=== PATIENT | female | born 1980 | race Caucasian/White ===

== ENCOUNTER 2016-10-21 07:17 | Observation (INO) | payer OTHER ==
[2016-10-21] MEDS ORDERED: ceFAZolin 2 GM/DEXTROSE 100 ML IV ONE (07:55)
[2016-10-21] MEDS ORDERED: THROMBIN (BOVINE) 5,000 UNIT VIAL TP ONE (08:25)
[2016-10-21] MEDS ORDERED: CHLORHEXIDINE GLUC HIBICLENS 118 ML BTL TP ONE (08:25)
[2016-10-21] MEDS ORDERED: BUPIVACAINE 0.25% 30 ML SDV ONE (08:26)
[2016-10-21] MEDS ORDERED: BACITRACIN 50,000 UNITS/10 ML SYR IRR ONE (08:26)
[2016-10-21] MEDS ORDERED: LR 1,000 ML IV ONE (08:28)
[2016-10-21] MEDS ORDERED: LIDOCAINE 1% 2 ML INJ ONE (08:43)
[2016-10-21] MEDS ORDERED: MIDAZOLAM 2 MG/2 ML VIAL IVP ONE (08:53)
[2016-10-21] MEDS ORDERED: PREGABALIN 150 MG CAP PO ONE (08:54)
--- NOTE | 2016-10-21 09:18 | PDANEPAE ---
ANE History of Present Illness c5-6 ACDF ANE Past Medical History - Cardiovascular History Hx Hypertension: No Hx Arrhythmias: No Hx Chest Pain: No Hx Coronary Artery / Peripheral Vascular Disease: No Hx CHF / Valvular Disease: No Hx Palpitations: No - Pulmonary History Hx COPD: No Hx Asthma/Reactive Airway Disease: No Hx Recent Upper Respiratory Infection: No Hx Oxygen in Use at Home: No Hx Sleep Apnea: No Sleep Apnea Screening Result - Last Documented: Negative - Neurologic History Hx Cerebrovascular Accident: No Hx Seizures: No Hx Dementia: No - Endocrine History Hx Diabetes: No - Renal History Hx Renal Disorders: No - Liver History Hx Hepatic Disorders: No - Neurological & Psychiatric Hx Hx Neurological and Psychiatric Disorders: Yes Neurological / Psychiatric History Comment: severe neck pain w/ stabbing, burning pain down R UE- miriam R upper arm. Occ numbness. R arm weakness. - Cancer History Hx Cancer: No - Congenital Disorder History Hx Congenital Disorders: No - GI History Hx Gastrointestinal Disorders: No - Other Health History Other Health History: CRPS or chronic regional pain syndrome -L ankle - Chronic Pain History Chronic Pain: Yes (neck/RUE, LLE RSD) - Surgical History Prior Surgeries: T and A mid 80's. appy '04. L ankle sx '08,'09'. nose reconstruction '07 ANE Review of Systems Review of systems is: negative - Exercise capacity Exercise capacity: >=4 METS METS (RN): 5 METS ANE Patient History - Allergies Allergies/Adverse Reactions: adhesive tape Allergy (Verified 10/10/16 12:06) Other-Enter Comments - Home Medications Home Medications: Ascorbic Acid [Vitamin C 500 mg (*)] 500 mg PO DAILY 10/09/16 [Last Taken 1 Week Ago] Cholecalciferol Vit D3 [Vitamin D3 (*)] 2,000 units PO DAILY 10/09/16 [Last Taken 1 Week Ago] Gabapentin [Neurontin 100 MG (*)] 200 mg PO TID 10/09/16 [Last Taken 10/20/16 20 :00] Herbals/Supplements -Info Only 1 ea PO DAILY 10/09/16 [Last Taken 1 Week Ago] Ibuprofen [Motrin (*)] 200 mg PO DAILY PRN 10/09/16 [Last Taken 1 Week Ago] Vitamin B Complex [B Complex] 1 each PO DAILY 10/09/16 [Last Taken 1 Week Ago] oxyCODONE/APAP 5/325 [Percocet 5/325 (*)] 1 each PO Q4-6PRN PRN 10/09/16 [Last Taken 10/20/16 20:00] - NPO status NPO Status: no food or drink >8 hours NPO Since - Liquids (Date): 10/20/16 NPO Since - Liquids (Time): 08:00 NPO Since - Solids (Date): 10/20/16 NPO Since - Solids (Time): 18:00 - Anes Hx Anes Hx: post operative nausea - Smoking Hx Smoking Status: Never smoked Marijuana use: No - Alcohol Use Alcohol Use: None ANE Labs/Vital Signs - Vital Signs Blood Pressure: 124/91 Heart Rate: 72 Respiratory Rate: 16 O2 Sat (%): 96 Height: 170.18 cm Weight: 90.718 kg ANE Physical Exam - Airway Neck exam: decreased ROM Mallampati Score: Class 1 - Pulmonary Pulmonary: no respiratory distress - Cardiovascular Cardiovascular: regular rate and rhythym - ASA Status ASA Status: II ANE Anesthesia Plan Anesthesia Plan: general endotracheal anesthesia Specialized Airway: video laryngoscope Total IV Anesthesia: Yes
[2016-10-21] MEDS ORDERED: SCOPOLAMINE HYDROBROMIDE 1 MG/3 DAYS PATCH TD ONE (09:23)
[2016-10-21] MEDS ORDERED: SCOPOLAMINE HYDROBROMIDE 1 MG/3 DAYS PATCH TD SCH (09:30)
[2016-10-21] MEDS ORDERED: ONDANSETRON 4 MG/2 ML VIAL ONE (09:35)
[2016-10-21] MEDS ORDERED: SUGAMMADEX SODIUM 200 MG/2 ML VIAL IVP ONE (09:35)
[2016-10-21] MEDS ORDERED: REMIFENTANIL HCL 1 MG VIAL ONE ×2 (09:35→10:34)
[2016-10-21] MEDS ORDERED: DEXAMETHASONE 4 MG/ML VIAL ONE (09:35)
[2016-10-21] MEDS ORDERED: LIDOCAINE 2% 100 MG/5 ML SYR ONE (09:35)
[2016-10-21] MEDS ORDERED: fentaNYL 100 MCG/2 ML INJ ONE ×3 (09:36→12:32)
[2016-10-21] MEDS ORDERED: PROPOFOL 200 MG/20 ML VIAL ONE (09:36)
[2016-10-21] MEDS ORDERED: PROPOFOL/EMULSION 500 MG/50 ML BOTTLE IV ONE ×2 (09:36→10:34)
[2016-10-21] MEDS ORDERED: ONDANSETRON 4 MG/2 ML VIAL IVP PRN ×2 (10:31→11:27)
[2016-10-21] MEDS ORDERED: ACETAMINOPHEN 500 MG TAB PO PRN (10:31)
[2016-10-21] MEDS ORDERED: PROMETHAZINE HCL 25 MG/ML INJ IVP PRN (10:31)
[2016-10-21] MEDS ORDERED: OXYCODONE/APAP 5/325 TAB PO PRN (10:31)
[2016-10-21] MEDS ORDERED: HYDROCODONE/APAP 5/325 TAB PO PRN (10:31)
[2016-10-21] MEDS ORDERED: NALOXONE HCL 0.4 MG/ML INJ IVP PRN (10:31)
[2016-10-21] MEDS ORDERED: MEPERIDINE 25 MG/ML SYR IVP PRN (10:31)
[2016-10-21] MEDS ORDERED: ALBUTEROL 3 ML DEYVIAL IH PRN (10:31)
[2016-10-21] MEDS ORDERED: DIAZEPAM 10 MG/2 ML SYR IVP PRN ×2 (11:02→11:47)
[2016-10-21] MEDS ORDERED: diphenhydrAMINE 25 MG CAP PO PRN (11:27)
[2016-10-21] MEDS ORDERED: ONDANSETRON DISINTEGRATING 4 MG TAB PO PRN (11:27)
[2016-10-21] MEDS ORDERED: BISACODYL 10 MG SUPP PR PRN (11:27)
[2016-10-21] MEDS ORDERED: POLYETHYLENE GLYCOL 3350 17 GM PKT PO PRN (11:27)
[2016-10-21] MEDS ORDERED: LACTULOSE 20 GM/30 ML UDCUP PO PRN (11:27)
[2016-10-21] MEDS ORDERED: MAGNESIUM HYDROXIDE 30 ML UDCUP PO PRN (11:27)
[2016-10-21] MEDS ORDERED: HYDROmorphONE/DILAUDID 1 MG/ML SYR ONE ×2 (11:29→12:10)
[2016-10-21] MEDS: HYDROmorphONE/DILAUDID 1 MG/ML SYR IVP PRN ×4 (11:29→12:43)
[2016-10-21] MEDS ORDERED: NS 1,000 ML IV SCH (11:30)
--- NOTE | 2016-10-21 11:35 | PDHPUP ---
History & Physical Update H&P update statement: This history and physical update is based on an assessment of the patient which was completed after admission or registration (within 24 hours), but prior to the surgery/procedure. H&P update: H&P reviewed & patient examined, no change in patient's condition since H&P completed
[2016-10-21] MEDS ORDERED: DIAZEPAM 10 MG/2 ML SYR ONE (11:37)
--- NOTE | 2016-10-21 11:47 | POSTOPPROG ---
Post Op Note Date of Operation: 10/21/16 Surgeon: Chris Nixon Sales Training Representative: Priscilla Forman PA-C Anesthesia: GET(General Endotracheal) Pre-op Diagnosis: Cervical radiculopathy Post-op Diagnosis: Same Procedure: ACDF C5/6 Findings: See operative dication Inf/Abcess present in the surg proc area at time of surgery?: No Depth: Organ Space EBL: Minimal (10mL) Complications: None SOAP Progress Note Assessment/Plan: Assessment: Plan: S: Patient doing well, in PACU. Has expected muscle spasm pain in posterior neck. O: NAD, VSS CN II-XII grossly intact PERRL, EOMI, speech fluent BUE 5/5= CAMACHO X 4 Incision c/d/i- dermabond A: 36 yo female sp ACDF C5/6 for right arm radiculopathy and large disc herniation P: -Admit to med/surg -Optmize pain management- percocet/valium/tylenol -Postop x-rays later today -No collar- only soft collar for comfort -PT/ADMINISTRATIVE SECRETARY -Dispo- can go home later today if doing well, swallowing well -Advance diet as tolerated- soft -Call neurosurgery with any changes in neuro/motor exam 10/21/16 11:36 Objective: Vital Signs Temp Pulse Resp BP Pulse Ox 72 16 124/91 H 96 10/21/16 09:18 10/21/16 09:18 10/21/16 09:18 10/21/16 09:18
--- NOTE | 2016-10-21 12:07 | GOP ---
[f rep st] OPERATIVE REPORT DATE OF OPERATION: 10/21/2016 SURGEON: Chris Nixon MD NEUROSURGEON: Chris Nixon M.D. LPN: Priscilla Forman P.A.-C. ANESTHESIA: General endotracheal. PREOPERATIVE DIAGNOSIS: 1. Right C6 radiculopathy. 2. Large disk osteophyte complex on the right at C5-C6. POSTOPERATIVE DIAGNOSIS: 1. Right C6 radiculopathy. 2. Large disk osteophyte complex on the right at C5-C6. PROCEDURE PERFORMED: 1. C5-C6 anterior cervical diskectomy and fusion. 2. Placement of interbody device at C5-C6. 3. Anterior instrumentation at C5-C6. 4. Use of the operative microscope. 5. Intraoperative neurophysiologic monitoring, including somatosensory evoked potentials and motor evoked potentials. 6. [place] of local autograft. 7. Use of allograft Pro[employer] demineralized bone matrix. FINDINGS: Successful ACDF. SPECIMENS: There were no specimens. ESTIMATED BLOOD LOSS: 25 mL. INDICATIONS: The patient is a 36-year-old woman who presented with a right C6 radiculopathy. She h as failed conservative measures, including physical therapy, steroid injections and oral steroids, a lthough she did get brief benefit from these for the short term. She presents today for C5-C6 anter ior cervical diskectomy and fusion, after exhaustive discussion regarding surgical versus continued conservative management. DESCRIPTION OF PROCEDURE: After informed consent was obtained from the patient, the patient was bro ught to the operating room and was placed in the supine position on the operating table. A formal t shanel-out was performed, identifying the patient by name, medical record number, and date of . P reoperative antibiotics were given. An endotracheal tube was placed and general endotracheal anesth esia was smoothly induced. All appropriate leads were placed for intraoperative somatosensory evoke d and motor evoked potentials, and baseline potentials were normal. The patient's head was then mook alejandro in 10 pounds of traction with a chinstrap and extended. A lateral radiograph confirmed the site of the incision leading to the C5-C6 disk space. Ten mL of 0.25% Marcaine with epinephrine was infiltrated in the skin for hemostasis. The neck was then prepped and draped in the normal sterile fashion. A skin incision was made using a 10 blade an d the subcutaneous tissues were dissected using monopolar electrocautery. The skin was undermined [place] the platysma and then the platysma was opened in line with its fibers. The avascular plane betw een the sternocleidomastoid and the midline structures was then dissected back toward the spine. Th e prevertebral fascia was opened and the nearest disk space was marked with a needle, and a lateral radiograph confirmed that this was C5-C6. At this point, the longus colli muscles were elevated laterally and self-retaining retractors were p laced spanning the C5-C6 disk space. [place] distractors were placed into the C5 and C6 vertebral vito dies, and the disk space was placed under distraction. We then brought the operative microscope int o the field, and the remainder of the procedure was performed under high-powered magnification. First, the disk was removed completely using curettes and Kerrison punches. Posteriorly, the woodenware assembler ior longitudinal ligament was opened and the dura was identified. We carried this out into the left side C5-C6 foramen, performing a foraminotomy there. All bleeding was controlled with bipolar elec trocautery and Gelfoam. Next, we came back toward the C5-C6 foramen on the right side. As we neared the foramen, some soft disk material was visualized behind the posterior longitudinal ligament. The ligament was carefully removed and these fragments of disk were then removed from the foraminal space. This allowed for e xcellent decompression of the nerve root at that level. A nerve hook was used to feel out into the C5-C6 foramen, which was completely decompressed with no further signs of any compression. The posterior osteophytes were removed using Kerrison punches. The disk space was then sized for a 7 x 14 x 11 mm anatomic Medtronic PTC cage, which was packed with allograft demineralized bone matri x and locally harvested autograft from drilling down the osteophytes. This was placed into the disk space, and a lateral radiograph confirmed good placement. The [place] pins were then removed and the anterior surface of the endplates were fashioned for a 17 mm Medtronic Zevo plate, which was then secured to the vertebral bodies using 3.5 x 15 mm titanium s crews. Final x-ray showed excellent placement of the hardware, with no sign of malposition and good sizing of the graft. At this point, the wound was copiously irrigated using bacitracin irrigation. All bleeding was cont rolled with bipolar electrocautery. Prior to the end of the case, the locking cap on the plate was locked over the screw heads. The platysma was closed using interrupted 2-0 Vicryl, the deep dermis was closed using interrupted 2-0 Vicryl and the skin was closed using Dermabond. The patient was th en awakened in the operating room where she was extubated, and was transferred to the PACU in stable condition. There were no operative complications. I was scrubbed and present for the entire procedure. All sponge and needle counts were correct at the end of the case. DRAINS: There were no drains. FLUIDS REPLACED: And urine output, per the anesthesia record. All somatosensory-evoked potentials and motor-evoked potentials were at baseline throughout the case . /[id number]/MODL
[2016-10-21] MEDS: fentaNYL 100 MCG/2 ML INJ IVP PRN ×2 (12:35→12:49)
[2016-10-21] MEDS ORDERED: OXYCODONE/APAP 5/325 TAB ONE (12:58)
[2016-10-21] MEDS ORDERED: oxyCODONE IR 5 MG TAB ONE (15:13)
[2016-10-21] MEDS: CYCLOBENZAPRINE 10 MG TAB PO PRN (15:19)
[2016-10-21] MEDS: oxyCODONE IR 5 MG TAB PO PRN ×3 (15:19→23:39)
[2016-10-21] MEDS: GABAPENTIN 100 MG CAP PO SCH ×2 (15:20→21:34)
[2016-10-21] MEDS: ceFAZolin 2 GM/DEXTROSE 100 ML IV SCH ×2 (15:21→21:33)
[2016-10-21] MEDS: ACETAMINOPHEN 500 MG TAB PO SCH ×2 (15:25→21:33)
[2016-10-21] MEDS: DIAZEPAM 5 MG TAB PO PRN ×2 (17:14→23:39)
[2016-10-21] MEDS: OXYCODONE/APAP 5/325 TAB PO PRN (17:15)
[2016-10-21] MEDS: SENNOSIDES/DOCUSATE SODIUM TAB PO SCH (19:33)
[2016-10-22] MEDS: ACETAMINOPHEN 500 MG TAB PO SCH (05:00)
[2016-10-22] MEDS: oxyCODONE IR 5 MG TAB PO PRN ×2 (05:00→12:01)
[2016-10-22] MEDS: CYCLOBENZAPRINE 10 MG TAB PO PRN ×2 (05:00→12:02)
[2016-10-22 08:16] VITALS: BP 121/66; PULSE 52; RESP 18; TEMP 98; O2SAT 96
[2016-10-22] MEDS: SENNOSIDES/DOCUSATE SODIUM TAB PO SCH (08:22)
[2016-10-22] MEDS: DIAZEPAM 5 MG TAB PO PRN (08:23)
[2016-10-22] MEDS: GABAPENTIN 100 MG CAP PO SCH (08:23)
[2016-10-22] MEDS: OXYCODONE/APAP 5/325 TAB PO PRN (08:24)
--- NOTE | 2016-10-22 08:43 | NEUSURGPN ---
Date of Surgery: 10/21/16 Post Op Day: 1 Assessment/Plan: 36 yo female sp ACDF C5/6 for right arm radiculopathy and large disc herniation POD#1 -May discharge home after xrays are complete -No collar- only soft collar for comfort -PT/INTERFACE ANALYST -Advance diet as tolerated- soft -Call neurosurgery with any changes in neuro/motor exam Subjective: Right arm pain is gone Objective: NAD, VSS CN II-XII grossly intact PERRL, EOMI, speech fluent BUE 5/5= CAMACHO X 4 Incision c/d/i- dermabond Neuro Check Frequency: per routine Urinary Catheter in Place: No - Physician Discussed Patient with : [facility] Physical Exam - Vitals, I&O, Labs I and O 10/21/16 10/22/16 10/23/16 05:59 05:59 05:59 Intake Total 1100 Output Total 10 Balance 1090 Weight 90.718 kg Intake: Oral (ml) 400 IV Intake (ml) 700 Output: Estimated Blood Loss (ml) 10 Other: Intake Quantity Yes Sufficient Vital Signs Temp Pulse Resp BP Pulse Ox 36.7 C 52 L 18 121/66 H 96 10/22/16 08:00 10/22/16 08:00 10/22/16 08:00 10/22/16 08:00 10/22/16 08:00 ICD10 Worksheet Patient Problems: Problems Problem Status Onset Cervical stenosis of spine Acute - ICD10 Problem Qualifiers (1) Cervical stenosis of spine
[2016-10-22] MEDS ORDERED: PNEUMOCOCCAL 0.5ML VACCINE VIAL IM ONE (09:46)
[2016-10-24] MEDS ORDERED: ENOXAPARIN 40 MG/0.4 ML SYR SC SCH (09:00)
[2016-10-24] MEDS ORDERED: PATCH REMOVAL 1 EA PATCH TD SCH (09:19)
--- NOTE | 2016-10-26 17:06 | ASDISCHSUM ---
Discharge Information Plan Status:Home with No Needs Medically Cleared to Leave: Discharge Date:10/22/2016 01:30 PM CM D/C Disposition:Home, Routine, Self-Care ADT D/C Disposition:Home, Routine, Self-Care Projected Discharge Date:10/22/2016 01:30 PM Transportation at D/C: Discharge Delay Reason: Follow-Up Date:10/22/2016 01:30 PM Discharge Slot: Final Diagnosis: Placement Information Patient Contact Information Contact Name:RAMYA Relationship:Mother Address: Work Phone: City: [facility] Phone: State/Zip Code:[place] [address] Email: Financial Information Financial Class:[employer] Primary Plan Desc:[employer] P[employer] HMO OPEN ACC LOCAL Primary Plan Number:[id number] Secondary Plan Desc: Secondary Plan Number: Assessment Information Intervention Information
== END 2016-10-22 13:30 | disposition home or self-care (01) ==
LOC: F3N 07:17
PROVIDERS: ADMIT Neurological Surgery; ATTEND Neurological Surgery
PROC: 0RG10A0 Fusion of Cervical Vertebral Joint with Interbody Fusion Device, Anterior Approach, Anterior Column, Open Approach (ICD-10-PCS; principal; 2016-10-21 09:15)
PROC: 8E0WXBZ Computer Assisted Procedure of Trunk Region (ICD-10-PCS; principal; 2016-10-21 09:15)
PROC: 4A10X4G Monitoring of Central Nervous Electrical Activity, Intraoperative, External Approach (ICD-10-PCS; principal; 2016-10-21 09:15)
PROC: 0RT30ZZ Resection of Cervical Vertebral Disc, Open Approach (ICD-10-PCS; principal; 2016-10-21 09:15)
DX: M50.122 Cervical disc disorder at C5-C6 level with radiculopathy (principal); M25.78 Osteophyte, vertebrae; Z80.3 Family history of malignant neoplasm of breast
CPT/HCPCS: 22551; 72040; 76001; 97161; G0378; C1713; J0171; J0690; J1100; J1170; J2001; J2250; J2405; J2704; J3010

== ENCOUNTER → 2016-12-19 | Outpatient (CLI) | payer OTHER | LOC: FIMAGING 11:53 | PROVIDERS: ATTEND Neurological Surgery | DX: M54.12 Radiculopathy, cervical region (principal); M47.12 Other spondylosis with myelopathy, cervical region ==

== ENCOUNTER → 2017-05-04 | Outpatient (CLI) | payer OTHER | LOC: FIMAGING 15:26 | PROVIDERS: ATTEND Physician Assistant | DX: Z98.1 Arthrodesis status (principal) ==